=== PATIENT | female | born 1980 | race Two or more races ===

== ENCOUNTER 2021-07-10 04:48 | Inpatient (IN) | payer OTHER ==
[~2021-07-10] VITALS: Ht 154.9 cm; Wt 3.2 kg
[2021-07-10] MEDS ORDERED: PRENATAL CAPLE1 EAC1 PO (12:11)
[2021-07-10] MEDS ORDERED: METFORMIN HCL500 M1 (15:49)
[2021-07-10] MEDS ORDERED: LEVEMIR FL100 UNIT/1 (15:49)
[2021-07-10] MEDS ORDERED: SYNTHROID100 MCG (15:49)
[2021-07-10] MEDS ORDERED: NOVOLOG FL100 UNIT/1 (15:49)
[2021-07-10] MEDS ORDERED: INVOKAMET (15:49)
== END 2021-07-15 19:30 | disposition home or self-care (01) | DRG 786 ==
LOC: LDR 04:48 → SURG-SUITE 07-12 04:44
PROVIDERS: ADMIT Student in an Organized Health Care Education/Training Program; ATTEND Student in an Organized Health Care Education/Training Program
PROC: 10907ZC Drainage of Amniotic Fluid, Therapeutic from Products of Conception, Via Natural or Artificial Opening (ICD-10-PCS; 2021-07-10)
PROC: 3E0P7VZ Introduction of Hormone into Female Reproductive, Via Natural or Artificial Opening (ICD-10-PCS; 2021-07-10)
PROC: 4A1HXFZ Monitoring of Products of Conception, Cardiac Rhythm, External Approach (ICD-10-PCS; 2021-07-10)
PROC: 10D00Z1 Extraction of Products of Conception, Low, Open Approach (ICD-10-PCS; principal; 2021-07-11 20:52)
DX: O61.0 Failed medical induction of labor (principal); O24.12 Pre-existing type 2 diabetes mellitus, in childbirth; O12.14 Gestational proteinuria, complicating childbirth; O99.284 Endocrine, nutritional and metabolic diseases complicating childbirth; E03.9 Hypothyroidism, unspecified; O99.02 Anemia complicating childbirth; D64.9 Anemia, unspecified; Z3A.37 37 weeks gestation of pregnancy; Z37.0 Single live birth